=== PATIENT | male | born 1965 | race Asian ===

== ENCOUNTER 2021-01-28 14:19 | Outpatient (CLI) | payer OTHER ==
[2021-01-28 15:50] LABS: #Basophils 0.1 10x3/uL (0.0-0.2); #Eosinphils 0.1 10x3/uL (0.0-0.5); #Monocytes 0.5 10x3/uL (0.0-1.1); #Neutrophils 4.2 10x3/uL (1.5-8.4); %Basophils 0.7 % (0.0-2.0); %Eosinophils 1.6 % (0.0-6.0); %Lymphocytes 27.8 % (18.0-47.0); %Monocytes 6.9 % (0.0-10.0); %Neutrophils 62.9 % (40.0-75.0); Hemoglobin 14.3 g/dL (13.5-17.5); Mean Corpuscular HGB CONC 34.4 g/dL (32.0-36.0); Mean Corpuscular Hemoglobin 29.3 pg (27.0-33.0); Mean Corpuscular Volume 85.2 fl (81.2-95.1); Mean Platelet Volume 11.8 fl (7.4-10.4); Platelet Count 182 10x3/uL (150-450); RBC Distribution Width 11.9 % (11.5-14.5); Red Blood Cell (RBC) Count 4.88 10x6/uL (4.32-5.72); White Blood Cell (WBC) Count 6.7 10x3/uL (3.5-10.5)
[2021-01-28 16:12] LABS: INR-International Normal Ratio 0.9; PTT 24.2 sec (22.0-33.0); Prothrombin Time 10.5 sec (9.5-12.1)
[2021-01-28 16:55] LABS: ALT (SGPT) 29 U/L (8-55); AST (SGOT) 32 U/L (5-34); Albumin 4.3 g/dL (3.5-5.0); Alkaline Phosphatase 69 U/L (40-110); Anion Gap 11 mmol/L (10-20); BUN (Urea Nitrogen) 13 mg/dL (8.4-25.7); Bilirubin, Direct 0.1 mg/dL (0.1-0.3); Bilirubin, Total 0.4 mg/dL (0.2-1.2); Calc. Creatinine Clearance 0 mL/min (70-130); Calcium 9.7 mg/dL (7.8-10.44); Carbon Dioxide 28 mmol/L (22-29); Chloride 103 mmol/L (98-107); Globulin 2.7 g/dL (2.4-3.5); Glucose 186 mg/dL (70-105); Potassium 4.4 mmol/L (3.5-5.1); Sodium 138 mmol/L (136-145)
== END 2021-01-28 14:20 | disposition home or self-care (01) ==
LOC: LABBT 14:19
PROVIDERS: ATTEND Internal Medicine Cardiovascular Disease
DX: Z01.818 Encounter for other preprocedural examination (principal); R94.39 Abnormal result of other cardiovascular function study
CPT/HCPCS: 80053; 80076; 85025; 85610; 85730

== ENCOUNTER 2021-01-29 06:35 | Day surgery (SDC) | payer OTHER ==
[2021-01-28 13:01] VITALS: BMI 25.7
[2021-01-29] MEDS ORDERED: Sodium Chloride 0.9% 10 ML ONE (06:51)
[2021-01-29] MEDS ORDERED: Midazolam HCl 2 mg/2 ml Vial ONE (06:53)
[2021-01-29] MEDS ORDERED: Fentanyl 100 MCG/2 ML VIAL ONE (06:53)
[2021-01-29] MEDS ORDERED: Adenosine 6 MG/2 ML VIAL ONE (06:54)
[2021-01-29] MEDS ORDERED: Heparin 10,000 UNITS/ 10 ML VIAL ONE (06:54)
[2021-01-29] MEDS ORDERED: Lidocaine 1% (PF) 30 ML VIAL ONE (06:54)
[2021-01-29] MEDS ORDERED: Iopamidol 370 76% 100 ML VIAL ONE (08:54)
[2021-01-29] MEDS ORDERED: Acetaminophen/Codeine 30-300mg Tablet PO PRN ×2 (09:00)
[2021-01-29] MEDS ORDERED: Multivit, Therapeutic 1 TAB PO SCH (09:00)
[2021-01-29] MEDS ORDERED: Nitroglycerin 0.4 MG TAB (25 Tab Bottle) SL PRN (09:00)
[2021-01-29] MEDS ORDERED: Sodium Chloride 0.9% 1,000 ML IV SCH (09:00)
[2021-01-29] MEDS ORDERED: Aspirin 81 mg Enteric Coated Tablet PO SCH (09:00)
[2021-01-29] MEDS ORDERED: Losartan 25 MG TAB PO SCH (09:00)
[2021-01-29] MEDS ORDERED: Atorvastatin Calcium 20 MG TAB PO SCH (21:00)
[2021-01-29] MEDS ORDERED: Amlodipine 5 MG TAB PO SCH (21:00)
[2021-01-30] MEDS ORDERED: PROSTA GENIX PO SCH ×2 (09:00)
== END 2021-01-29 15:31 | disposition home or self-care (01) ==
LOC: CCL 06:35 → UNDOADMIN 08:51 → SURG A 08:51 → CCL 15:31 → UNDODISIN 15:31
PROVIDERS: ATTEND Internal Medicine Cardiovascular Disease
PROC: 4A023N7 Measurement of Cardiac Sampling and Pressure, Left Heart, Percutaneous Approach (ICD-10-PCS; principal; 2021-01-29)
PROC: B2111ZZ Fluoroscopy of Multiple Coronary Arteries using Low Osmolar Contrast (ICD-10-PCS; principal; 2021-01-29)
DX: I25.118 Atherosclerotic heart disease of native coronary artery with other forms of angina pectoris (principal); I25.82 Chronic total occlusion of coronary artery; I10 Essential (primary) hypertension; E78.5 Hyperlipidemia, unspecified; Z79.82 Long term (current) use of aspirin; Z79.899 Other long term (current) drug therapy
CPT/HCPCS: 71046; 80053; 80076; 85025; 85610; 85730; 93458; 99152; 99153; J0153; J1642; J1644; J2001; J2250; J3010; Q9967

== ENCOUNTER 2021-01-31 10:45 | Inpatient (IN) | payer OTHER ==
[2021-02-05] MEDS ORDERED: EPINEPHrine 1 MG/ML AMP ONE (06:51)
[2021-02-05] MEDS ORDERED: Dexamethasone 4 mg/ml Vial ONE (06:51)
[2021-02-05] MEDS ORDERED: Albumin 5% 500 ML ONE (06:51)
[2021-02-05] MEDS ORDERED: Bupivacaine PF 0.5% 30 ML VIAL ONE (06:51)
[2021-02-05] MEDS ORDERED: Dexmedetomidine 200 MCG/2 ML VIAL ONE (06:55)
[2021-02-05] MEDS ORDERED: Midazolam HCl 2 mg/2 ml Vial ONE (06:55)
[2021-02-05] MEDS ORDERED: Fentanyl 250 MCG/5 ML VIAL ONE (06:55)
[2021-02-05] MEDS ORDERED: Phenylephrine 10 MG/ML VIAL ONE (06:55)
[2021-02-05] MEDS ORDERED: Heparin 10,000 UNITS/1 ML VIAL 30,000 UNITS in Sodium Chloride 0.9% 1,000 ML FS SCH (07:15)
[2021-02-05] MEDS ORDERED: PHENYLEPHRINE-NS 100 MCG/ML 10 ML SYRINGE ONE ×2 (07:16→07:52)
[2021-02-05] MEDS ORDERED: Papaverine 60 MG/2 ML VIAL ONE (07:52)
[2021-02-05] MEDS ORDERED: Magnesium Sulfate 1 GM/2 ML VIAL ONE (07:52)
[2021-02-05] MEDS ORDERED: Lidocaine 1% PF 5 ML VIAL ONE (07:52)
[2021-02-05] MEDS ORDERED: Cardioplegic Soln 1,000 ML BAG ONE (07:52)
[2021-02-05] MEDS ORDERED: Ketorolac Tromethamine 30 MG/ML VIAL ONE (07:52)
[2021-02-05] MEDS ORDERED: Mannitol 12.5 GM/50 ML ONE (07:52)
[2021-02-05] MEDS ORDERED: PROPOFOL 200 MG/20 ML VIAL ONE (07:52)
[2021-02-05] MEDS ORDERED: Protamine Sulfate 250 MG/25 ML VIAL ONE (07:52)
[2021-02-05] MEDS ORDERED: Sodium Bicarb 50 MEQ/50 ML Abboject 8.4% SYRINGE ONE (07:52)
[2021-02-05] MEDS ORDERED: Dexamethasone 20 MG/5 ML VIAL ONE (07:52)
[2021-02-05] MEDS ORDERED: Heparin 30,000 units/30 ml VIAL ONE (07:52)
[2021-02-05] MEDS ORDERED: Potassium Chloride 60 MEQ/30 ML VIAL ONE (07:52)
[2021-02-05] MEDS ORDERED: Heparin 5,000 UNITS/ML VIAL ONE (07:52)
[2021-02-05] MEDS ORDERED: Calcium Chloride 1 GM/10 ML Abboject SYRINGE ONE (07:52)
[2021-02-05] MEDS ORDERED: Thrombin 5000 UNITS/5 ML VIAL ONE (07:52)
[2021-02-05] MEDS ORDERED: Lidocaine 2% PF 100 mg/5 ml Syringe ONE (07:52)
[2021-02-05] MEDS ORDERED: Rocuronium Bromide 10 MG/ML (10ML VIAL) ONE (07:52)
[2021-02-05] MEDS ORDERED: Aminocaproic Acid 5 GM/20 ML VIAL ONE (07:52)
[2021-02-05] MEDS ORDERED: Insulin Regular 300 UNITS/3 ML VIAL ONE (10:12)
[2021-02-05] MEDS ORDERED: Norepinephrine 8 MG/0.9% NS 250 ML IVPB PRN (10:37)
[2021-02-05] MEDS ORDERED: Hetastarch 6% 500 ML 500 ML IVPB PRN (10:37)
[2021-02-05] MEDS ORDERED: Fentanyl 100 MCG/2 ML VIAL SLOW IVP PRN ×2 (10:37)
[2021-02-05] MEDS ORDERED: Ondansetron PF 4 MG/2 ML Vial IVP PRN (10:37)
[2021-02-05] MEDS ORDERED: Potassium Chloride 20 MEQ/100 ML PREMIX BAG IVPB PRN (10:37)
[2021-02-05] MEDS ORDERED: Promethazine HCl 25 MG/ML VIAL IM PRN (10:37)
[2021-02-05] MEDS ORDERED: Bisacodyl 5 MG TAB PO PRN (10:37)
[2021-02-05] MEDS ORDERED: hydrALAZINE 20 MG/ML VIAL SLOW IVP PRN (10:37)
[2021-02-05] MEDS ORDERED: Nitroglycerin 50 MG/250 ML BOT 250 ML IVPB PRN (10:37)
[2021-02-05] MEDS ORDERED: Guaifenesin DM 100-10/5 ML UDCUP PO PRN (10:37)
[2021-02-05] MEDS ORDERED: HYDROcodone/Acetaminophen 5/325 mg Tablet PO PRN ×2 (10:37)
[2021-02-05] MEDS ORDERED: Morphine 2 MG/ML VIAL SLOW IVP PRN (10:37)
[2021-02-05] MEDS ORDERED: Mag-Al 1200 mg/1200 mg/30 ML UDCUP PO PRN (10:37)
[2021-02-05] MEDS ORDERED: Bisacodyl 10 MG SUPP PR PRN (10:37)
[2021-02-05] MEDS ORDERED: Acetaminophen 325 MG TAB PO PRN (10:37)
[2021-02-05] MEDS ORDERED: D5 1/2 NS w/20 mEq KCL 1,000 ML IV SCH (10:45)
[2021-02-05] MEDS ORDERED: Magnesium 2 GM/50 ML 2 GM in Premix Bag 1 BAG IVPB SCH (10:45)
[2021-02-05 11:09] VITALS: BMI 22.8
[2021-02-05 11:19] LABS: INR-International Normal Ratio 1.3; PTT 28.5 sec (22.9-36.1); Prothrombin Time 16.3 sec (12.0-14.7)
[2021-02-05 11:27] LABS: Anion Gap 11 mmol/L (10-20); BUN (Urea Nitrogen) 9 mg/dL (8.4-25.7); Calc. Creatinine Clearance 105 mL/min (70-130); Calcium 8.5 mg/dL (7.8-10.44); Carbon Dioxide 25 mmol/L (22-29); Chloride 109 mmol/L (98-107); Glucose 170 mg/dL (70-105); Potassium 3.8 mmol/L (3.5-5.1); Sodium 141 mmol/L (136-145)
[2021-02-05 11:28] LABS: Hemoglobin 12.1 g/dL (14.0-18.0); Mean Corpuscular HGB CONC 34.6 g/dL (32.0-36.0); Mean Corpuscular Hemoglobin 30.5 pg (27.0-31.0); Mean Platelet Volume 9.3 fL (7.4-10.4); Platelet Count 134 thou/uL (130-400); Red Blood Cell (RBC) Count 3.96 mill/uL (4.70-6.10); White Blood Cell (WBC) Count 22.4 thou/uL (4.8-10.8)
[2021-02-05] MEDS ORDERED: Dextrose 50% Abboject 50 ML SYRINGE SLOW IVP PRN (11:30)
[2021-02-05] MEDS ORDERED: HUMULIN R 100 UNITS in Sodium Chloride 0.9% 100 ML IVPB SCH (11:30)
[2021-02-05] MEDS ORDERED: Insulin Regular 300 UNITS/3 ML VIAL SC PRN (11:30)
[2021-02-05] MEDS ORDERED: Dextrose 5% in Water 1,000 ML IV PRN (11:30)
[2021-02-05] MEDS ORDERED: Lantus 1000 UNITS/10 ML VIAL SC PRN (11:30)
[2021-02-05] MEDS: Ketorolac Tromethamine 30 MG/ML VIAL IVP SCH ×3 (11:34→23:54)
[2021-02-05 12:16] LABS: Band 22 % (5-11); Eosinophils 1 % (0-10); Lymphocytes 10 % (21-51); MDiff Complete? YES; Monocytes 1 % (0-10); Neutrophil 60 % (42-75); RBC Morphology Normal; Reactive Lymphocytes 6 % (0-10)
[2021-02-05] MEDS: CEFAZOLIN 2 GM in Premix Bag 1 BAG IVPB SCH ×2 (14:14→21:37)
[2021-02-05 19:45] LABS: Hemoglobin 10.9 g/dL (14.0-18.0)
[2021-02-05] MEDS ORDERED: Atorvastatin Calcium 20 MG TAB PO SCH (21:00)
[2021-02-05] MEDS ORDERED: Famotidine/PF 20 mg/2ml Vial SLOW IVP SCH (21:00)
[2021-02-06 04:40] LABS: #Lymphocytes 1.2 thou/uL (1.20-3.40); #Monocytes 1.2 thou/uL (0.11-0.59); #Neutrophils 10.2 thou/uL (1.40-6.50); %Lymphocytes 9.5 % (21.0-51.0); %Monocytes 9.3 % (0.0-10.0); %Neutrophils 81.1 % (42.0-75.0); Hemoglobin 9.6 g/dL (14.0-18.0); Mean Corpuscular HGB CONC 35.3 g/dL (32.0-36.0); Mean Corpuscular Hemoglobin 30.9 pg (27.0-31.0); Mean Corpuscular Volume 87.6 fL (78.0-98.0); Mean Platelet Volume 9.6 fL (7.4-10.4); Platelet Count 137 thou/uL (130-400); RBC Distribution Width 10.9 % (11.5-14.5); Red Blood Cell (RBC) Count 3.09 mill/uL (4.70-6.10); White Blood Cell (WBC) Count 12.6 thou/uL (4.8-10.8)
[2021-02-06 05:00] LABS: Anion Gap 8 mmol/L (10-20); BUN (Urea Nitrogen) 11 mg/dL (8.4-25.7); Calc. Creatinine Clearance 92 mL/min (70-130); Calcium 8.2 mg/dL (7.8-10.44); Carbon Dioxide 25 mmol/L (22-29); Chloride 111 mmol/L (98-107); Glucose 142 mg/dL (70-105); Sodium 140 mmol/L (136-145)
[2021-02-06] MEDS: Ketorolac Tromethamine 30 MG/ML VIAL IVP SCH ×3 (05:48→18:01)
[2021-02-06] MEDS ORDERED: traMADol HCl 50 MG TAB PO PRN ×2 (06:17)
[2021-02-06] MEDS: CEFAZOLIN 2 GM in Premix Bag 1 BAG IVPB SCH (06:29)
[2021-02-06] MEDS ORDERED: Atorvastatin Calcium 20 MG TAB PO SCH (06:30)
[2021-02-06] MEDS: Aspirin 325 MG TAB PO SCH (08:04)
[2021-02-06] MEDS: Magnesium 2 GM/50 ML 2 GM in Premix Bag 1 BAG IVPB SCH (08:04)
[2021-02-06] MEDS ORDERED: Fish Oil 1,000 MG CAP PO SCH (09:00)
[2021-02-06] MEDS: Atorvastatin Calcium 20 MG TAB PO SCH (21:13)
[2021-02-07] MEDS: Ketorolac Tromethamine 30 MG/ML VIAL IVP SCH ×4 (00:57→17:00)
[2021-02-07 04:15] LABS: Anion Gap 11 mmol/L (10-20); BUN (Urea Nitrogen) 13 mg/dL (8.4-25.7); Calc. Creatinine Clearance 107 mL/min (70-130); Calcium 8.1 mg/dL (7.8-10.44); Carbon Dioxide 25 mmol/L (22-29); Chloride 108 mmol/L (98-107); Glucose 139 mg/dL (70-105); Potassium 3.9 mmol/L (3.5-5.1); Sodium 140 mmol/L (136-145)
[2021-02-07 05:24] LABS: #Lymphocytes 1.5 thou/uL (1.20-3.40); #Monocytes 0.8 thou/uL (0.11-0.59); #Neutrophils 7.6 thou/uL (1.40-6.50); %Basophils 0.2 % (0.0-1.0); %Eosinophils 0.3 % (0.0-10.0); %Lymphocytes 15.1 % (21.0-51.0); %Monocytes 7.6 % (0.0-10.0); %Neutrophils 76.8 % (42.0-75.0); Hemoglobin 8.7 g/dL (14.0-18.0); Mean Corpuscular HGB CONC 35.5 g/dL (32.0-36.0); Mean Corpuscular Hemoglobin 31.6 pg (27.0-31.0); Mean Corpuscular Volume 88.8 fL (78.0-98.0); Mean Platelet Volume 10.2 fL (7.4-10.4); Platelet Count 92 thou/uL (130-400); Platelet Morphology Comment Appears Decreased; RBC Distribution Width 11.2 % (11.5-14.5); Red Blood Cell (RBC) Count 2.76 mill/uL (4.70-6.10); White Blood Cell (WBC) Count 9.8 thou/uL (4.8-10.8)
[2021-02-07] MEDS: Aspirin 325 MG TAB PO SCH (09:05)
[2021-02-07] MEDS: Magnesium 2 GM/50 ML 2 GM in Premix Bag 1 BAG IVPB SCH (09:06)
[2021-02-07] MEDS ORDERED: Mag-Al 1200 mg/1200 mg/30 ML UDCUP PO PRN (10:29)
[2021-02-07] MEDS ORDERED: Guaifenesin DM 100-10/5 ML UDCUP PO PRN (10:29)
[2021-02-07] MEDS ORDERED: Mineral Oil ENEMA PR PRN (10:29)
[2021-02-07] MEDS ORDERED: Bisacodyl 5 MG TAB PO PRN (10:29)
[2021-02-07] MEDS ORDERED: Milk Of Magnesia 30 ML UDCUP PO PRN (10:29)
[2021-02-07] MEDS ORDERED: Zolpidem Tartrate 5 MG TAB PO PRN (10:29)
[2021-02-07] MEDS ORDERED: Nitroglycerin 0.4 MG TAB (25 Tab Bottle) SL PRN (10:29)
[2021-02-07] MEDS ORDERED: diphenhydrAMINE 25 MG CAP PO PRN (10:29)
[2021-02-07] MEDS ORDERED: Bisacodyl 10 MG SUPP PR PRN (10:29)
[2021-02-07 11:00] LABS: Actual Bicarbonate (HCO3a) 24.2 mEq/L (22-28); Analyzer IN Cardio OR; Base Excess (BEa) 1.2 mEq/L (-2.0 to +3.0); CO2 Tension 33.1 mmHg (35.0-45.0); Calcium, Ionized (arterial) 1.11 mmol/L (1.12-1.30); Carboxyhemoglobin (COHb) 0.3 gm% (0.0-3.0); Hemoglobin (Hb) 13.5 g/dL (14.0-18.0); O2 Tension (PaO2), arterial 379.3 mmHg (80.0-100.0); Potassium - ABG Lab 3.45 mmol/L (3.70-5.30); pH, Arterial 7.48 (7.35-7.45)
[2021-02-07 11:01] LABS: Actual Bicarbonate (HCO3a) 23.5 mEq/L (22-28); Analyzer IN Cardio OR; Base Excess (BEa) -0.7 mEq/L (-2.0 to +3.0); CO2 Tension 36.9 mmHg (35.0-45.0); Calcium, Ionized (arterial) 1.11 mmol/L (1.12-1.30); Carboxyhemoglobin (COHb) 0.2 gm% (0.0-3.0); O2 Tension (PaO2), arterial 362.8 mmHg (80.0-100.0); pH, Arterial 7.42 (7.35-7.45)
[2021-02-07 11:01] LABS: Actual Bicarbonate (HCO3a) 25.4 mEq/L (22-28); Analyzer IN Cardio OR; Base Excess (BEa) 1.5 mEq/L (-2.0 to +3.0); Calcium, Ionized (arterial) 0.97 mmol/L (1.12-1.30); Carboxyhemoglobin (COHb) 0.3 gm% (0.0-3.0); Hemoglobin (Hb) 9.2 g/dL (14.0-18.0); O2 Tension (PaO2), arterial 308.9 mmHg (80.0-100.0); Potassium - ABG Lab 4.45 mmol/L (3.70-5.30); pH, Arterial 7.45 (7.35-7.45)
[2021-02-07 11:01] LABS: Actual Bicarbonate (HCO3a) 23.1 mEq/L (22-28); Analyzer IN Cardio OR; Base Excess (BEa) -0.8 mEq/L (-2.0 to +3.0); CO2 Tension 35.1 mmHg (35.0-45.0); Calcium, Ionized (arterial) 0.82 mmol/L (1.12-1.30); Carboxyhemoglobin (COHb) 0.3 gm% (0.0-3.0); Hemoglobin (Hb) 9.9 g/dL (14.0-18.0); O2 Tension (PaO2), arterial 338.4 mmHg (80.0-100.0); Potassium - ABG Lab 3.83 mmol/L (3.70-5.30); pH, Arterial 7.44 (7.35-7.45)
[2021-02-07 11:02] LABS: Analyzer IN Cardio OR; Base Excess (BEa) -3.4 mEq/L (-2.0 to +3.0); CO2 Tension 46.9 mmHg (35.0-45.0); Carboxyhemoglobin (COHb) 0.3 gm% (0.0-3.0); Hemoglobin (Hb) 11.6 g/dL (14.0-18.0); O2 Tension (PaO2), arterial 274.7 mmHg (80.0-100.0); Potassium - ABG Lab 3.48 mmol/L (3.70-5.30); pH, Arterial 7.31 (7.35-7.45)
[2021-02-07 11:02] LABS: Actual Bicarbonate (HCO3a) 21.2 mEq/L (22-28); Analyzer IN Cardio OR; Base Excess (BEa) -2.5 mEq/L (-2.0 to +3.0); CO2 Tension 31.9 mmHg (35.0-45.0); Calcium, Ionized (arterial) 1.21 mmol/L (1.12-1.30); Carboxyhemoglobin (COHb) 0.1 gm% (0.0-3.0); Hemoglobin (Hb) 8.8 g/dL (14.0-18.0); O2 Tension (PaO2), arterial 339.1 mmHg (80.0-100.0); Potassium - ABG Lab 3.99 mmol/L (3.70-5.30); pH, Arterial 7.44 (7.35-7.45)
[2021-02-07 11:03] LABS: Puncture Site Arterial Line
[2021-02-07 11:04] LABS: Puncture Site Arterial Line
[2021-02-07 11:04] LABS: Puncture Site Arterial Line
[2021-02-07 11:05] LABS: Puncture Site Arterial Line
[2021-02-07 11:06] LABS: Puncture Site Arterial Line
[2021-02-07 11:06] LABS: Puncture Site Arterial Line
[2021-02-07] MEDS: Atorvastatin Calcium 20 MG TAB PO SCH (21:33)
[2021-02-07] MEDS: Metoprolol Tartrate 25 MG TAB PO SCH (21:33)
[2021-02-08] MEDS: Ketorolac Tromethamine 30 MG/ML VIAL IVP SCH ×3 (00:36→12:13)
[2021-02-08] MEDS ORDERED: Aspirin 325 mg Enteric Coated Tablet PO SCH (09:00)
[2021-02-08] MEDS: Metoprolol Tartrate 25 MG TAB PO SCH (09:01)
[2021-02-08 16:06] VITALS: BP 108/56; TEMP 98.7
[2021-02-08] MEDS ORDERED: Digoxin 0.25 MG TAB PO SCH (17:15)
== END 2021-02-08 18:05 | disposition home or self-care (01) | DRG 236 ==
LOC: SURG A 02-05 06:48 → CCU 02-05 10:33 → 2NO 02-07 16:33
PROVIDERS: ADMIT Thoracic Surgery (Cardiothoracic Vascular Surgery); ATTEND Thoracic Surgery (Cardiothoracic Vascular Surgery)
PROC: 02100Z9 Bypass Coronary Artery, One Artery from Left Internal Mammary, Open Approach (ICD-10-PCS; principal; 2021-02-05)
PROC: 021009W Bypass Coronary Artery, One Artery from Aorta with Autologous Venous Tissue, Open Approach (ICD-10-PCS; 2021-02-05)
PROC: 06BQ0ZZ Excision of Left Saphenous Vein, Open Approach (ICD-10-PCS; 2021-02-05)
PROC: 5A1221Z Performance of Cardiac Output, Continuous (ICD-10-PCS; 2021-02-05)
DX: I25.10 Atherosclerotic heart disease of native coronary artery without angina pectoris (principal); I10 Essential (primary) hypertension; E78.5 Hyperlipidemia, unspecified
CPT/HCPCS: 36415; 36416; 36430; 71045; 80048; 82805; 85025; 85610; 85730; 86850; 86900; 86901; 93005; 93010; 93798; J0171; J0690; J1100; J1642; J1644; J1815; J1885; J2001; J2150; J2250; J2370; J2405; J2440; J2704; J2720; J3010; J3370; J3475; J3480; J3490; P9045; S0017; S0020; S0028

== ENCOUNTER 2021-02-04 10:07 | Outpatient (CLI) | payer OTHER | END 2021-02-04 10:08 | disposition home or self-care (01) | LOC: LABBT 10:07 | PROVIDERS: ATTEND Thoracic Surgery (Cardiothoracic Vascular Surgery) | DX: Z01.812 Encounter for preprocedural laboratory examination (principal); I25.10 Atherosclerotic heart disease of native coronary artery without angina pectoris | CPT/HCPCS: 86850; 86900; 86901 ==

== ENCOUNTER 2021-03-07 08:37 | Outpatient (CLI) | payer OTHER | END 2021-03-07 08:38 | disposition home or self-care (01) | LOC: BICRAD 08:37 | PROVIDERS: ATTEND Family Medicine | DX: R05 Cough (principal); Z95.1 Presence of aortocoronary bypass graft; J90 Pleural effusion, not elsewhere classified | CPT/HCPCS: 71046 ==

== ENCOUNTER 2023-07-16 14:05 | Outpatient (CLI) | payer BC | END 2023-07-16 14:06 | disposition home or self-care (01) | LOC: ULT 14:05 | PROVIDERS: ATTEND Urology | DX: N20.0 Calculus of kidney (principal); N28.1 Cyst of kidney, acquired | CPT/HCPCS: 74018; 76770 ==